=== PATIENT | female | born 2000 | race African-American/Black ===

== ENCOUNTER 2022-12-24 08:42 | Emergency (ER) | payer OTHER ==
[~2022-12-24] VITALS: Ht 157.5 cm; Wt 56.2 kg
[2022-12-24] MEDS ORDERED: ADDERALL 10 MG10 MG PO (08:54)
--- OUTSIDE RECORDS SUMMARY | 2022-12-24 12:30 | XMS ---
PreManage Notification: MYRNA ELDER [employer] Sander Events No recent Security Events currently on file [facility] There are no care providers on record at this time. Shaunna has no Care Guidelines for this patient. [place] VISIT COUNT (12 MO.) 1 SAMMY Ballesteros TOTAL 1 NOTE: Visits indicate total known visits. ED/UCC VISIT TRACKING (12 MO.) 12/24/2022 08:43 SAMMY Aguilera OR TYPE: Emergency COMPLAINT: - REMOVAL FORIEGN OBJECT VAGINAL INPATIENT VISIT TRACKING (12 MO.) No inpatient visits to display in this time frame [email or web address]
== END 2022-12-24 09:51 | disposition home or self-care (01) ==
LOC: ED 08:42
DX: T19.2XXA Foreign body in vulva and vagina, initial encounter (principal); W45.8XXA Other foreign body or object entering through skin, initial encounter
CPT/HCPCS: 99283

== ENCOUNTER 2025-09-29 19:40 | Emergency (ER) | payer OTHER ==
[~2025-09-29] VITALS: Ht 157.5 cm; Wt 59.0 kg
[~2025-09-29 19:40] MED LIST: ADDERALL 10 MG10 MG PO
--- OUTSIDE RECORDS SUMMARY | 2025-09-29 19:41 | XMS ---
PreManage Notification: MYRNA ELDER Security Strickler Attendant Events No recent Security Events currently on file [facility] MET [facility] There are no care providers on record at this time. Shaunna has no Care Guidelines for this patient. [place] VISIT COUNT (12 MO.) 1 SAMMY Ballesteros TOTAL 1 NOTE: Visits indicate total known visits. ED/C VISIT TRACKING (12 MO.) 09/29/2025 19:41 SAMMY Aguilera OR TYPE: Emergency COMPLAINT: - URINE PROBLEM INPATIENT VISIT TRACKING (12 MO.) No inpatient visits to display in this time frame [email or web address]
[2025-09-29 20:11] LABS: BLOOD/HGB, URINE LARGE (Negative); KETONE, URINE NEGATIVE (Negative); LEUK ESTERASE, URINE MODERATE (negative); NITRITE, URINE NEGATIVE (negative)
[2025-09-29 20:21] LABS: BACTERIA, URINE NONE SEEN /hpf (negative); CASTS, URINE NONE SEEN \\lpf; CRYSTALS, URINE NONE SEEN (0-1+); EPITHELIAL CELLS, URINE NONE SEEN /lpf (0-1+); REFLEX CULTURE, URINE Yes (No)
[2025-09-29] MEDS ORDERED: PYRIDIUM100 MG PO (22:10)
[2025-09-29] MEDS ORDERED: CEPHALEXIN500 M1 PO (22:10)
[2025-09-29] MEDS ORDERED: CEPHALEXIN MONOHYDRATE 500 MG HOME.PACK PO ONE (22:15)
[2025-09-29] MEDS ORDERED: PHENAZOPYRIDINE HCL 100 MG TAB PO ONE (22:15)
[2025-09-29 22:20] VITALS: BP 131/82
== END 2025-09-29 22:20 | disposition home or self-care (01) ==
LOC: ED 19:40
PROVIDERS: Internal Medicine
DX: N39.0 Urinary tract infection, site not specified (principal)
CPT/HCPCS: 81001; 84703; 87088; 99283; A9270